=== PATIENT | female | born 1995 | race Caucasian/White ===

== ENCOUNTER 2021-01-04 11:28 | Emergency (ER) | payer OTHER ==
[~2021-01-04] VITALS: Ht 149.9 cm; Wt 72.1 kg
[2021-01-04] MEDS ORDERED: LEXAPRO (11:50)
[2021-01-04] MEDS ORDERED: METFORMIN (11:50)
[2021-01-04] MEDS ORDERED: SPIRONOLACTONE (11:50)
[2021-01-04] MEDS ORDERED: WELLBUTRIN (11:50)
[2021-01-04] MEDS ORDERED: ONDANSETRON ODT 4 MG TAB.RAPDIS SL ONE (12:00)
[2021-01-04] MEDS ORDERED: ACETAMINOPHEN 325 MG TABLET PO ONE (12:00)
[2021-01-04] MEDS ORDERED: ACETAMINOPHEN ES 500 MG TABLET ONE (12:05)
[2021-01-04] MEDS ORDERED: ONDANSETRON ODT 4 MG TAB.RAPDIS ONE (12:06)
--- NOTE | 2021-01-04 12:37 | NUR ---
Patient discharged to home in stable condition. Written and verbal after care instructions given. Patient verbalizes understanding of instructions. Stressed follow up or return to ER for worsening s/s.pt walks in steady gait. denied nausea or headache at this time.
[2021-01-04 12:45] VITALS: BP 109/79
== END 2021-01-04 12:37 | disposition home or self-care (01) ==
LOC: ER 11:28
DX: S50.11XA Contusion of right forearm, initial encounter (principal); V43.52XA Car driver injured in collision with other type car in traffic accident, initial encounter; Y92.410 Unspecified street and highway as the place of occurrence of the external cause; E28.2 Polycystic ovarian syndrome; E11.9 Type 2 diabetes mellitus without complications; Z79.84 Long term (current) use of oral hypoglycemic drugs; F32.9 Major depressive disorder, single episode, unspecified; Z79.899 Other long term (current) drug therapy
CPT/HCPCS: 73090; A4663; A9150; Q0162